=== PATIENT | female | born 2005 | race Caucasian/White ===

== ENCOUNTER 2023-06-25 15:13 | Emergency (ER) | payer OTHER ==
[2023-06-25 16:16] VITALS: BP 117/66; PULSE 90; RESP 15; TEMP 99.4; BMI 27.6
== END 2023-06-25 17:40 | disposition home or self-care (01) ==
LOC: FER 15:13
PROC: 0HQGXZZ Repair Left Hand Skin, External Approach (ICD-10-PCS; principal; 2023-06-25)
DX: S61.211A Laceration without foreign body of left index finger without damage to nail, initial encounter (principal); W26.0XXA Contact with knife, initial encounter
CPT/HCPCS: 99282-25

== ENCOUNTER 2023-07-04 14:43 | Emergency (ER) | payer OTHER ==
[2023-07-04 14:56] VITALS: BP 157/90; PULSE 93; RESP 20; TEMP 98; BMI 27.6
== END 2023-07-04 15:51 | disposition home or self-care (01) ==
LOC: FER 14:43
DX: Z48.02 Encounter for removal of sutures (principal)
CPT/HCPCS: 99281-25